=== PATIENT | female | born 1955 | race Caucasian/White ===

== ENCOUNTER 2018-01-16 19:21 | Emergency (ER) | payer OTHER ==
[2018-01-17] MEDS: IBUPROFEN 600 MG TAB PO (00:54)
== END 2018-01-17 01:06 | disposition home or self-care (01) ==
LOC: E/R 19:21
DX: M26.602 Left temporomandibular joint disorder, unspecified (principal); I10 Essential (primary) hypertension; E11.9 Type 2 diabetes mellitus without complications; Z79.84 Long term (current) use of oral hypoglycemic drugs
CPT/HCPCS: 99282; Z7502

== ENCOUNTER 2018-03-21 06:54 | Day surgery (SDC) | payer OTHER ==
[2018-03-21] MEDS ORDERED: MIDAZOLAM 1 MG/ML 2 ML INJ ×2 (09:15)
[2018-03-21] MEDS ORDERED: FENTAnyl 50 MCG/ML VIAL (09:15)
== END 2018-03-21 11:21 | disposition home or self-care (01) ==
LOC: GIL 06:54
DX: Z12.11 Encounter for screening for malignant neoplasm of colon (principal); E11.9 Type 2 diabetes mellitus without complications
CPT/HCPCS: 45378